=== PATIENT | female | born 1985 | race Caucasian/White ===

== ENCOUNTER → 2018-01-29 08:50 | Outpatient (CLI) | payer BC, SELFPAY ==
--- NOTE | 2018-01-29 | DI.US.S_ITS ---
PROCEDURE: US PELVIC COMPLETE INDICATIONS: CHRONIC RIGHT PELVIC PAIN TECHNIQUE: Real-time scanning was performed of the pelvic organs, with image documentation. Additional endovaginal scanning was necessary due to incomplete visualization of the adnexal and endometrial structures by transabdominal scanning. COMPARISON: None. FINDINGS: Transabdominal scanning: Limited scanning through the kidneys shows no hydronephrosis. No pathologic free abdominal or pelvic fluid. Endovaginal scanning: Uterus: Uterus is normal in size at 9.5 x 5.3 x 7.0 cm. The endometrium measures 14.7 mm in combined thickness. Ovaries: Complex, thick and irregular walled cyst involves the right ovary measuring 2.5 x 2.0 x 2.4 cm. Ovaries otherwise are normal. IMPRESSION: Complex right ovarian cyst. Recommend short term follow pelvic ultrasound in 6-14 weeks to assure resolution. Dictated by: Wilfredo OBANDO Interpreted: Fredis Lemus MD on 01/29/2018 at 10:21 Approved by: Fredis Lemus M.D. on 01/29/2018 at 11:00
== END ==
PROVIDERS: PCP Physician Assistant; Visit Provider Nurse Practitioner Family
DX: N83.201 Unspecified ovarian cyst, right side (principal)
CPT/HCPCS: 76830; 76856

== ENCOUNTER → 2019-04-03 10:37 | Outpatient (CLI) | payer BC, SELFPAY ==
--- NOTE | 2019-04-03 10:39 | DI.RAD.S_ITS ---
PROCEDURE: XR CHEST 2V INDICATIONS: shortness of breath TECHNIQUE: 2 views of the chest were acquired. COMPARISON: None. FINDINGS: Surgical changes and devices: None. Lungs and pleura: Lungs are clear. No pleural effusions or pneumothorax. Mediastinum: Mediastinal contours are normal. Heart size is normal. Bones and chest wall: No suspicious bony abnormalities. Soft tissues appear unremarkable. IMPRESSION: Normal for age, source of current shortness of breath symptoms is not seen. Dictated by: Nj De La Garza M.D. on 04/03/2019 at 11:09 Approved by: Nj De La Garza M.D. on 04/03/2019 at 11:10
== END ==
PROVIDERS: PCP Family Medicine; Visit Provider Family Medicine
DX: R06.02 Shortness of breath (principal)
CPT/HCPCS: 71046; 93005

== ENCOUNTER → 2020-02-05 09:11 | Outpatient (CLI) | payer BC, SELFPAY ==
[2020-02-05 10:09] LABS: Add Manual Diff / Slide Review NO; Basophils Absolute Auto 100 /uL (0-100); Basophils Percent Auto 1.1 % (0-2); Eosinophils Absolute Auto 300 /uL (0-450); Eosinophils Percent Auto 4.8 % (2-4); Hematocrit 40.4 % (36-46); Hemoglobin 13.9 g/dL (12.0-16.0); Lymphocytes Absolute Auto 1800 /uL (1100-4500); Lymphocytes Percent Auto 30.2 % (25-40); Mean Corpuscular HGB Conc 34.3 % (30-36); Mean Corpuscular Hemoglobin 27.6 PG (26-34); Mean Corpuscular Volume 80.4 fL (80-100); Monocytes Absolute Auto 400 /uL (0-900); Monocytes Percent Auto 6.6 % (3-14); Neutrophils Absolute Auto 3500 /uL (1500-7000); Neutrophils Percent Auto 57.3 % (50-75); Platelet Count 302 X10^3/uL (150-400); Red Blood Cell Count 5.03 X10^6/uL (4.0-5.2); Red Cell Distribution Width 13.4 % (11.6-14.8); White Blood Cell Count 6.1 X10^3/uL (4.5-11.0)
[2020-02-05 10:30] LABS: Alanine Aminotransferase 18 IU/L (<35); Albumin 4.2 g/dL (3.5-5.0); Albumin Globulin Ratio 1.5 (1.0-2.8); Alkaline Phosphatase 67 U/L (38-126); Aspartate Aminotransferase 20 IU/L (14-36); BUN Creatinine Ratio 15.9 (6-22); Bilirubin Total 0.5 mg/dL (0.2-1.3); Blood Urea Nitrogen 13 mg/dL (7-17); Calcium 9.4 mg/dL (8.4-10.2); Carbon Dioxide 27 mmol/L (22-32); Chloride 105 mmol/L (98-107); Cholesterol 197 mg/dL (140-199); Estimated Glomerular Filt Rate > 60.0 mL/min (>60); Globulin 2.8 g/dL (1.7-4.1); Glucose 98 mg/dL (70-100); HDL Cholesterol 49 mg/dL (40-60); HEMOLYSIS < 15 (0-50); LDL Cholesterol Calculated 98 mg/dL (<100); Potassium 4.6 mmol/L (3.4-5.1); Sodium 138 mmol/L (137-145); Triglycerides 249 mg/dL (35-150)
[2020-02-05 10:58] LABS: TSH w/ Reflex to FT4 1.69 uIU/mL (0.47-4.68)
== END ==
PROVIDERS: Referring Provider Registered Nurse Diabetes Educator; Visit Provider Registered Nurse Diabetes Educator
DX: E66.9 Obesity, unspecified (principal); I10 Essential (primary) hypertension
CPT/HCPCS: 36415; 80053; 80061; 84443; 85025

== ENCOUNTER 2020-04-19 10:51 | Emergency (ER) | payer BC, SELFPAY ==
[2020-04-19 10:57] VITALS: BP 162/72; PULSE 90; RESP 15; TEMP 36.7; O2SAT 100
[2020-04-19 11:08] VITALS: BP 139/63; PULSE 95; RESP 17; O2SAT 99
[2020-04-19 11:23] LABS: Add Manual Diff / Slide Review NO; Basophils Absolute Auto 100 /uL (0-100); Basophils Percent Auto 0.9 % (0-2); Eosinophils Absolute Auto 200 /uL (0-450); Eosinophils Percent Auto 2.8 % (2-4); Hematocrit 36.8 % (36-46); Hemoglobin 12.1 g/dL (12.0-16.0); Lymphocytes Absolute Auto 2100 /uL (1100-4500); Monocytes Absolute Auto 500 /uL (0-900); Monocytes Percent Auto 6.1 % (3-14); Neutrophils Absolute Auto 5500 /uL (1500-7000); Neutrophils Percent Auto 65.2 % (50-75); Platelet Count 293 X10^3/uL (150-400); Red Blood Cell Count 4.49 X10^6/uL (4.0-5.2); Red Cell Distribution Width 12.7 % (11.6-14.8); White Blood Cell Count 8.4 X10^3/uL (4.5-11.0)
[2020-04-19] MEDS: KETOROLAC 60 MG/2 ML VIAL 15 MG IV (11:29)
[2020-04-19] MEDS: ONDANSETRON 4 MG/2 ML INJ IV (11:29)
[2020-04-19] MEDS: SODIUM CHLORIDE 0.9% 1,000 ML 1000 ML IV (11:29)
[2020-04-19 11:34] LABS: Alanine Aminotransferase 18 IU/L (<35); Albumin Globulin Ratio 1.3 (1.0-2.8); BUN Creatinine Ratio 13.4 (6-22); Bilirubin Total 0.5 mg/dL (0.2-1.3); Blood Urea Nitrogen 9 mg/dL (7-17); Calcium 8.6 mg/dL (8.4-10.2); Carbon Dioxide 26 mmol/L (22-32); Chloride 104 mmol/L (98-107); Estimated Glomerular Filt Rate > 60.0 mL/min (>60); Globulin 3.1 g/dL (1.7-4.1); Glucose 97 mg/dL (70-100); Lipase 127 U/L (23-300); Sodium 136 mmol/L (137-145); Total Protein 7.1 g/dL (6.3-8.2)
[2020-04-19 11:35] LABS: HEMOLYSIS 63 (0-50); Potassium 4.7 mmol/L (3.4-5.1)
[2020-04-19 11:36] LABS: Alkaline Phosphatase 50 U/L (38-126); Aspartate Aminotransferase 32 IU/L (14-36)
--- NOTE | 2020-04-19 11:53 | ED.ABDPAIN ---
HPI - Abdominal Pain <JOSE BullockP - Last Filed: 04/19/20 13:46> General Chief Complaint: Abdominal Pain Stated Complaint: Right side pain from ribs to hip and around back Time Seen by Provider: 04/19/20 11:05 Source: patient Mode of arrival: Ambulatory Limitations: no limitations History of Present Illness HPI narrative: This is a 34 year female, nonsmoker, who has history of endometriosis and partial hysterectomy, cholecystectomy presents to ED with chief complain of right lower quadrant pain since yesterday morning but became worse since this morning. Pain is in right abdominal pain under the rib cage radiating down to right lower quadrant and back. Patient reports chills but no fever, nausea without vomiting. Reports pain increases with getting up and down and walking. She had taken bath last night which helped with discomfort mildly. Patient reports painful to urinate but denies frequency, burning, or urgency. Patient has history of adenomyosis which eventually had partial hysterectomy done and reports lots of damaged to right ovary. Last meal was 8:00 p.m.. Related Data Previous Rx's Medication Instructions Recorded lisinopril 20 mg tablet 20 mg PO DAILY #90 tab 02/01/20 hydrocodone-acetaminophen [[place]] 1 tab PO BID PRN #7 tab 04/19/20 Allergies Allergy/AdvReac Type Severity Reaction Status Date / Time No Known Drug Allergies Allergy Verified 02/18/20 15:56 Review of Systems <Chris Ruiz [facility] - Last Filed: 04/19/20 13:46> Review of Systems Narrative: General: Denies fever, (+) chills, fatigue, malaise, sweats. HEENT: Denies sinus pain, ear pain, sore throat, difficulty swallowing, dizziness. Respiratory: Denies dyspnea, cough, wheezing, hemoptysis, sputum. Cardiovascular: Denies chest pain, palpitations, orthopnea, edema. Gastrointestinal: See HPI : See HPI Musculoskeletal: Denies weakness, joint pain or bony pain. Skin: Denies rash, skin lesions, or other. Neurologic: Denies weakness, headache, numbness, change in speech, confusion, seizures, incoordination. Psychiatric: No concerning psychosocial issues. 12-point review of systems is negative except for those stated above. Patient History <JOSE BullockP - Last Filed: 04/19/20 13:46> Medical History (Updated 04/19/20 @ 13:21 by JERRY Bullock) Chicken pox (Resolved) Depression (Chronic 2002) Endometriosis (Suspected 2004) Hearing difficulty (Acute) History of heavy periods (Chronic 2004) Obesity (Acute) Ovarian cyst (Chronic 2004) Surgical History (Updated 04/19/20 @ 12:55 by JERRY Bullock) Anesthesia (Resolved) H/O: hysterectomy (Acute) History of third molar tooth extraction (Resolved 2004) History of tonsillectomy (Resolved 2004) Status post cholecystectomy (Resolved 2008) Family History Father Age: 66 Cancer Hypertension Mental health disorder Mother Age: 64 Hypertension Fibromyalgia Grandfather Prostate cancer Grandmother No problems noted. Grandfather Dementia Grandmother No problems noted. Social History Smoking Status: Never smoker Smoking Status: Never smoker alcohol intake frequency: 0-2 drinks per day Substance Use Type: does not use Exam <JERRY Bullock - Last Filed: 04/19/20 13:46> Narrative Exam Narrative: GEN: Alert, oriented x 3, well appearing and nourished, and in moderate distress from pain. Head: Normal cephalic, atraumatic. No scalp or temporal tenderness, palpable mass or rash. EYES: Pupils are equal, round, and reactive to light and accommodation. Extraocular muscles are intact bilaterally. There is no subconjunctival hemorrhage, exudate and sclera non-icteric. ENT: Hearing grossly intact. Nose without bleeding, purulent discharge or deviation. Facial sinuses nontender to palpate. Mucous membrane moist, no mucosal lesion. Throat without erythema, tonsillar hypertrophy or exudate. Uvula in midline, airway patent. Neck: Trachea in midline. No JVD, non-tender without lymphadenopathy. No masses or thyroid megaly. Supple, non-tender and no meningeal signs. CARDIAC: Normal regular rate and rhythm without murmurs, gallops, or rubs. No chest wall tenderness. No peripheral edema, cyanosis or pallor. Capillary refill is less than 2 seconds. RESPIRATORY: Lungs are clear to auscultate bilaterally. No cough, wheezes, rales, or rhonchi. No stridor, respiratory distress, increase work of breathing, or accessary muscle used. ABD: Abdomen soft, nondistended. Rebound tenderness to palpate in right lower and right upper quadrant. Positive Rovsing sign. Bowel sounds are normal in all 4 quadrants. There is no palpable masses or organomegaly. EXT: Full painless ROM of all extremities with no loss of sensation, strength, effusion or edema. SKIN: Warm, dry, normal color for patient. No erythema, lesions or rash over visible areas. BACK: Nontender without deformity or crepitance. No flank tenderness. NEUROLOGICAL: Alert and oriented to place, time and person. Sensation and motor function intact bilaterally. No facial droops, dysphasia. PSYCHIATRIC: Good judgement and reason, without hallucinations, abnormal affect or abnormal behaviors during the examination. Patient is not suicidal. Initial Vital Signs Initial Vital Signs: Vital Signs Temperature 98.1 F 04/19/20 10:57 Pulse Rate 90 04/19/20 10:57 Respiratory Rate 15 04/19/20 10:57 Blood Pressure 162/72 H 04/19/20 10:57 Pulse Oximetry 100 04/19/20 10:57 External Female Exam: normal external appearance Speculum Exam - Vagina: normal appearance of the vagina and normal vaginal discharge Speculum Exam - Cervix: nontender Bimanual Exam- Vagina & Uterus: uterine size normal, consistency normal and No tender Bimanual Exam- Adnexa, other: adnexal mass and tender on the right <Riana Bueno MD - Last Filed: 04/20/20 18:25> Initial Vital Signs Initial Vital Signs: Vital Signs Temperature 98.1 F 04/19/20 10:57 Pulse Rate 90 04/19/20 10:57 Respiratory Rate 04/19/20 10:57 Blood Pressure 162/72 H 04/19/20 10:57 Pulse Oximetry 100 04/19/20 10:57 Scores <JERRY Bullock - Last Filed: 04/19/20 13:46> GCS [place] coma scale eye opening: Spontaneous [place] coma scale verbal response: Orientated [place] coma scale motor response: Obey commands [place] coma scale total score: 15 Course <Chris JERRY Ruiz - Last Filed: 04/19/20 13:46> Orders Ordered: Discontinued Medications Sodium Chloride (Normal Saline 0.9%) 1,000 mls @ 1,000 mls/hr IV BOLUS ONE Stop: 04/19/20 12:18 Last Infusion: 04/19/20 12:36 Dose: 0 mls/hr Documented by: Admin: 04/19/20 11:29 Dose: 1,000 mls/hr Documented by: SADE Ketorolac Tromethamine (Toradol) 15 mg IV NOW ONE Stop: 04/19/20 11:20 Last Admin: 04/19/20 11:29 Dose: 15 mg Documented by: SADE Ondansetron HCl (Zofran) 4 mg IV NOW ONE Stop: 04/19/20 11:20 Last Admin: 04/19/20 11:29 Dose: 4 mg Documented by: SADE Vital Signs Vital signs: Vital Signs - 8 hr 04/19/20 10:57 04/19/20 11:08 04/19/20 12:40 Temperature 98.1 F Pulse Rate 90 95 H Respiratory Rate 15 17 Blood Pressure 162/72 H 139/63 127/75 Pulse Oximetry 100 99 04/19/20 13:00 Temperature Pulse Rate 80 Respiratory Rate Blood Pressure 136/77 Pulse Oximetry 100 <Riana Bueno MD - Last Filed: 04/20/20 18:25> Orders Ordered: Discontinued Medications Sodium Chloride (Normal Saline 0.9%) 1,000 mls @ 1,000 mls/hr IV BOLUS ONE Stop: 04/19/20 12:18 Last Infusion: 04/19/20 12:36 Dose: 0 mls/hr Documented by: Admin: 04/19/20 11:29 Dose: 1,000 mls/hr Documented by: SADE Ketorolac Tromethamine (Toradol) 15 mg IV NOW ONE Stop: 04/19/20 11:20 Last Admin: 04/19/20 11:29 Dose: 15 mg Documented by: SADE Ondansetron HCl (Zofran) 4 mg IV NOW ONE Stop: 04/19/20 11:20 Last Admin: 04/19/20 11:29 Dose: 4 mg Documented by: SADE Vital Signs Vital signs: Vital Signs - 8 hr 04/19/20 10:57 04/19/20 11:08 04/19/20 12:40 Temperature 98.1 F Pulse Rate 90 95 H Respiratory Rate 15 17 Blood Pressure 162/72 H 139/63 127/75 Pulse Oximetry 100 99 04/19/20 13:00 Temperature Pulse Rate 80 Respiratory Rate Blood Pressure 136/77 Pulse Oximetry 100 MDM - Abdominal Pain <Chris JERRY Ruiz - Last Filed: 04/19/20 13:46> Differential Diagnosis Differential diagnosis: Likely acute appendicitis, calculus of kidney, diverticulitis and other (Ovarian cyst) Medical Records Attestation: I reviewed the patient's medical records. Lab Data Attestation: I reviewed the patient's lab results. Result diagrams: 04/19/20 11:15 04/19/20 11:15 Labs: Lab Results 04/19/20 04/19/20 04/19/20 Range/Units 11:15 11:15 11:58 WBC 8.4 (4.5-11.0) X10^3/uL RBC 4.49 (4.0-5.2) X10^6/uL Hgb 12.1 (12.0-16.0) g/dL Hct 36.8 (36-46) % MCV 82.0 (80-100) fL MCH 27.0 (26-34) PG MCHC 33.0 (30-36) % RDW 12.7 (11.6-14.8) % Plt Count 293 (150-400) X10^3/uL Neut % (Auto) 65.2 (50-75) % Lymph % (Auto) 25.0 (25-40) % Ada % (Auto) 6.1 (3-14) % Eos % (Auto) 2.8 (2-4) % Baso % (Auto) 0.9 (0-2) % Neut # (Auto) 5500 (0714-9050) /uL Lymph # (Auto) 2100 (9634-7337) /uL Ada # (Auto) 500 (0-900) /uL Eos # (Auto) 200 (0-450) /uL Baso # (Auto) 100 (0-100) /uL PT 11.2 (10.1-12.7) SECONDS INR 1.0 (0.9-1.3) APTT 29 (26.4-36.2) SECONDS Sodium 136 L (137-145) mmol/L Potassium 4.7 (3.4-5.1) mmol/L Chloride 104 (98-107) mmol/L Carbon Dioxide 26 (22-32) mmol/L BUN 9 (7-17) mg/dL Creatinine 0.67 (0.52-1.04) mg/dL Estimated GFR > 60.0 (>60) mL/min BUN/Creatinine Ratio 13.4 (6-22) Glucose 97 (70-100) mg/dL Calcium 8.6 (8.4-10.2) mg/dL Total Bilirubin 0.5 (0.2-1.3) mg/dL AST 32 (14-36) IU/L ALT 18 (<35) IU/L Alkaline Phosphatase 50 (38-126) U/L Total Protein 7.1 (6.3-8.2) g/dL Albumin 4.0 (3.5-5.0) g/dL Globulin 3.1 (1.7-4.1) g/dL Albumin/Globulin Ratio 1.3 (1.0-2.8) Lipase 127 (23-300) U/L Point of care testing: Urine Dip Bedside Urine Glucose 100 mg/dl Bedside Urine Bilirubin - Negative Bedside Urine Ketone - Negative Urine Specific [place] 1.010 Bedside Urine Occult Blood - Negative Bedside Urine pH 6.0 Bedside Urine Protein - Negative Bedside Urine Urobilinogen - Negative Bedside Urine Nitrite - Negative Bedside Urine Leukocytes - Negative Esterase Imaging Data CT scan - abdomen/pelvis: Radiologist's Impression: [place] [address] CT Scan Report Signed Patient: Viktoriya Adams [facility]#: [id number] : 1985Acct:[id number] Age/Sex: 34 / FDate of Service: 04/19/20 Loc: ED Accession Number: [id number] Procedure: CT abdomen pelvis w con Ordering Provider: Chris Ruiz PROCEDURE: CT ABDOMEN PELVIS W CON INDICATIONS: RLQ, back pain TECHNIQUE: After the administration of intravenous contrast, 5 mm thick sections acquired from the diaphragm to the symphysis. 5 mm coronal and sagittal reformats were acquired. For radiation dose reduction, the following was used: automated exposure control, adjustment of mA and/or kV according to patient size. COMPARISON: None. FINDINGS: Image quality: Excellent. ABDOMEN: Lung bases: Lung bases are clear. Heart size is normal. Solid organs: Liver is normal in size and enhancement. Gallbladder is surgically absent . Biliary system is non dilated. Pancreas enhances normally. Spleen is normal in size and enhancement. No adrenal nodules. Kidneys demonstrate normal size and enhancement, without hydronephrosis. Peritoneum and bowel: Bowel loops demonstrate normal wall thickness and caliber. No free fluid or air. Nodes and vessels: No retroperitoneal or mesenteric adenopathy by size criteria. Aorta and inferior vena cava are normal in size. Miscellaneous: No ventral hernias. PELVIS: Genitourinary: Bladder wall thickness is normal. The uterus is surgically absent. There is a peripherally hypervascular involuting ovoid structure measuring approximately 2.3 cm in the high right adnexa suggestive of an involuting or ruptured hemorrhagic cyst. Small amount of free fluid is present in the pelvis. The left ovary has a mildly enlarged lobulated appearance measuring 5.5 cm in diameter. Miscellaneous: No inguinal hernias or adenopathy. Bones: No suspicious bony lesions. Bilateral L5 pars defects. No vertebral body compression fractures. IMPRESSION: 1. Normal appendix. 2. Involuting/ruptured right ovarian corpus luteum. 3. Mildly enlarged lobulated left ovary. 4. Hysterectomy. 5. Bilateral L5 pars defects without spondylolisthesis. Dictated by: Patricia Antoine M.D. on 04/19/2020 at 12:35 Approved by: Patricia Antoine M.D. on 04/19/2020 at 12:42 [facility] Narrative Medical decision making narrative: This is a 34 year female who presents to ED with right lower quadrant pain which started yesterday and became worse this morning. Patient has history of partial hysterectomy and right ovarian cyst. Urine test without indication for infection or hematuria. Unremarkable CBC and chemistry test. Physical exam with exquisite tenderness to right lower quadrant. Pelvic exam appreciated tender to palpate in right ovary/lower quadrant without unusual vaginal discharge or cervical motion tenderness. Considered appendicitis, ovarian cyst, kidney stone and obtained CT of abdomen pelvis which showed normal appendix, involuting/ruptured right ovarian cyst measuring approximately 2.3 cm and also left ovary mildly enlarged lobulated appearance measuring 5.5 cm in diameter. Patient's pain was managed with IV Toradol and Zofran for nausea and infused 1 L of normal saline which helped with her symptoms. 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 Discharged to home with a few tabs of [place] for severe pain. <Riana Bueno MD - Last Filed: 04/20/20 18:25> Lab Data Labs: Lab Results 04/19/20 04/19/20 04/19/20 Range/Units 11:15 11:15 11:58 WBC 8.4 (4.5-11.0) X10^3/uL RBC 4.49 (4.0-5.2) X10^6/uL Hgb 12.1 (12.0-16.0) g/dL Hct 36.8 (36-46) % MCV 82.0 (80-100) fL MCH 27.0 (26-34) PG MCHC 33.0 (30-36) % RDW 12.7 (11.6-14.8) % Plt Count 293 (150-400) X10^3/uL Neut % (Auto) 65.2 (50-75) % Lymph % (Auto) 25.0 (25-40) % Ada % (Auto) 6.1 (3-14) % Eos % (Auto) 2.8 (2-4) % Baso % (Auto) 0.9 (0-2) % Neut # (Auto) 5500 (0565-0677) /uL Lymph # (Auto) 2100 (7507-1042) /uL Ada # (Auto) 500 (0-900) /uL Eos # (Auto) 200 (0-450) /uL Baso # (Auto) 100 (0-100) /uL PT 11.2 (10.1-12.7) SECONDS INR 1.0 (0.9-1.3) APTT 29 (26.4-36.2) SECONDS Sodium 136 L (137-145) mmol/L Potassium 4.7 (3.4-5.1) mmol/L Chloride 104 (98-107) mmol/L Carbon Dioxide 26 (22-32) mmol/L BUN 9 (7-17) mg/dL Creatinine 0.67 (0.52-1.04) mg/dL Estimated GFR > 60.0 (>60) mL/min BUN/Creatinine Ratio 13.4 (6-22) Glucose 97 (70-100) mg/dL Calcium 8.6 (8.4-10.2) mg/dL Total Bilirubin 0.5 (0.2-1.3) mg/dL AST 32 (14-36) IU/L ALT 18 (<35) IU/L Alkaline Phosphatase 50 (38-126) U/L Total Protein 7.1 (6.3-8.2) g/dL Albumin 4.0 (3.5-5.0) g/dL Globulin 3.1 (1.7-4.1) g/dL Albumin/Globulin Ratio 1.3 (1.0-2.8) Lipase 127 (23-300) U/L Point of care testing: Urine Dip Bedside Urine Glucose 100 mg/dl Bedside Urine Bilirubin - Negative Bedside Urine Ketone - Negative Urine Specific [place] 1.010 Bedside Urine Occult Blood - Negative Bedside Urine pH 6.0 Bedside Urine Protein - Negative Bedside Urine Urobilinogen - Negative Bedside Urine Nitrite - Negative Bedside Urine Leukocytes - Negative Esterase Discharge Plan Departure Patient Disposition: Home Clinical Impression: Abdominal pain Qualifiers: Abdominal location: right lower quadrant Qualified Code(s): R10.31 - Right lower quadrant pain Ovarian cyst Qualifiers: Laterality: bilateral Qualified Code(s): N83.201 - Unspecified ovarian cyst, right side Discharge Date/Time: 04/19/20 13:35 Instructions: DI for Ovarian Cyst, DI for Abdominal Pain-Adult Activity Restrictions/Additional Instructions: You have been diagnosed with [right lower quadrant abdominal pain likely from ovarian cyst. Today's blood tests are assuring with stable blood count and no elevation in indication for infection. You were treated with IV fluid and Toradol, Zofran for your symptoms. ]. What to do: *Take your medications as directed. You can take [id number] Tylenol and or Motrin as needed for discomfort. Ibuprofen 400-600 mg up to 3 to 4 times a day as needed for discomfort with food to decrease GI irritation. Tylenol 650-1000 mg up to 3 to 4 times a day as needed for pain. [place] for severe pain which is narcotic pain medication. Please take precautions for drowsiness such as not driving, drinking alcohol, or operating heavy equipments. Also it can cause constipation so please take precautions. [place] has been transmitted to [facility] [place]. *Follow up with your primary care provider and PUBLIC WORKS INSPECTOR provider in 2-3 days, call for an appointment. Let them know you were seen in the ED and that we asked you to be seen in follow up. *Return to ED if you have any new, worsening, or concerning symptoms, such as [chest pain, breathing difficulty, unable to tolerate fluids, dizziness, near syncope, vaginal bleeding, fever or any acute concerns]. Prescriptions: New hydrocodone-acetaminophen [[place]] 5-325 mg tablet 1 tab PO BID PRN (Reason: pain) Qty: 7 RF: 0 No Action lisinopril 20 mg tablet 20 mg PO DAILY Qty: 90 RF: 3 Referrals: ReynoldsCarolyn MD [Physician] - Trae Castellanos ARNP [Primary Care Provider] - Stand Alone Forms: Work Release Note <Riana Bueno MD - Last Filed: 04/20/20 18:25> Cosign ED Attending Cosniniature Attestation: I was immediately available in the department for consultation throughout this patient's visit. I agree with documentation as above. Riana Bueno MD
[2020-04-19 12:14] LABS: Prothrombin Time 11.2 SECONDS (10.1-12.7)
[2020-04-19 12:17] LABS: PTT Partial Thromboplastin Tim 29 SECONDS (26.4-36.2)
--- NOTE | 2020-04-19 12:37 | DI.CT.S_ITS ---
PROCEDURE: CT ABDOMEN PELVIS W CON INDICATIONS: RLQ, back pain TECHNIQUE: After the administration of intravenous contrast, 5 mm thick sections acquired from the diaphragm to the symphysis. 5 mm coronal and sagittal reformats were acquired. For radiation dose reduction, the following was used: automated exposure control, adjustment of mA and/or kV according to patient size. COMPARISON: None. FINDINGS: Image quality: Excellent. ABDOMEN: Lung bases: Lung bases are clear. Heart size is normal. Solid organs: Liver is normal in size and enhancement. Gallbladder is surgically absent . Biliary system is non dilated. Pancreas enhances normally. Spleen is normal in size and enhancement. No adrenal nodules. Kidneys demonstrate normal size and enhancement, without hydronephrosis. Peritoneum and bowel: Bowel loops demonstrate normal wall thickness and caliber. No free fluid or air. Nodes and vessels: No retroperitoneal or mesenteric adenopathy by size criteria. Aorta and inferior vena cava are normal in size. Miscellaneous: No ventral hernias. PELVIS: Genitourinary: Bladder wall thickness is normal. The uterus is surgically absent. There is a peripherally hypervascular involuting ovoid structure measuring approximately 2.3 cm in the high right adnexa suggestive of an involuting or ruptured hemorrhagic cyst. Small amount of free fluid is present in the pelvis. The left ovary has a mildly enlarged lobulated appearance measuring 5.5 cm in diameter. Miscellaneous: No inguinal hernias or adenopathy. Bones: No suspicious bony lesions. Bilateral L5 pars defects. No vertebral body compression fractures. IMPRESSION: 1. Normal appendix. 2. Involuting/ruptured right ovarian corpus luteum. 3. Mildly enlarged lobulated left ovary. 4. Hysterectomy. 5. Bilateral L5 pars defects without spondylolisthesis. Dictated by: Patricia Antoine M.D. on 04/19/2020 at 12:35 Approved by: Patricia Antoine M.D. on 04/19/2020 at 12:42
[2020-04-19 12:40] VITALS: BP 127/75
[2020-04-19 13:00] VITALS: BP 136/77; PULSE 80; O2SAT 100
== END 2020-04-19 13:35 | disposition home or self-care (01) ==
PROVIDERS: Emergency Provider Nurse Practitioner Family; PCP Registered Nurse Diabetes Educator
DX: R10.31 Right lower quadrant pain (principal); N83.201 Unspecified ovarian cyst, right side
CPT/HCPCS: 36415; 74177; 80053; 81003; 83690; 85025; 85610; 85730; 96361; 96374; 96375; 99284; J1885; J2405; Q9967

== ENCOUNTER → 2021-05-07 13:17 | Outpatient (CLI) | payer BC, SELFPAY ==
[2021-05-07 14:04] LABS: COVID19 -Nasal RAPID Negative (Negative)
== END ==
PROVIDERS: PCP Registered Nurse Diabetes Educator; Visit Provider Nurse Practitioner Family
DX: J02.9 Acute pharyngitis, unspecified (principal); Z20.822 Contact with and (suspected) exposure to COVID-19
CPT/HCPCS: 87070; 87635

== ENCOUNTER → 2021-05-30 09:33 | Outpatient (CLI) | payer BC, SELFPAY ==
[2021-05-30 12:13] LABS: Hematocrit 38.6 % (36-46); Hemoglobin 12.8 g/dL (12.0-16.0); Mean Corpuscular HGB Conc 33.2 % (30-36); Mean Corpuscular Hemoglobin 26.8 PG (26-34); Mean Corpuscular Volume 80.8 fL (80-100); Platelet Count 311 X10^3/uL (150-400); Red Blood Cell Count 4.77 X10^6/uL (4.0-5.2); Red Cell Distribution Width 12.9 % (11.6-14.8); White Blood Cell Count 7.6 X10^3/uL (4.5-11.0)
[2021-05-30 13:06] LABS: Alanine Aminotransferase 32 IU/L (<35); Albumin 4.3 g/dL (3.5-5.0); Albumin Globulin Ratio 1.6 (1.0-2.8); Alkaline Phosphatase 58 U/L (38-126); Aspartate Aminotransferase 25 IU/L (14-36); BUN Creatinine Ratio 16.5 (6-22); Bilirubin Total 0.4 mg/dL (0.2-1.3); Blood Urea Nitrogen 13 mg/dL (7-17); Calcium 9.3 mg/dL (8.4-10.2); Carbon Dioxide 27 mmol/L (22-32); Chloride 100 mmol/L (98-107); Cholesterol 198 mg/dL (140-199); Estimated Glomerular Filt Rate > 60.0 mL/min (>60); Globulin 2.7 g/dL (1.7-4.1); Glucose 86 mg/dL (70-100); HDL Cholesterol 57 mg/dL (40-60); HEMOLYSIS < 15 (0-50); LDL Cholesterol Calculated 93 mg/dL (<100); Potassium 4.5 mmol/L (3.4-5.1); Sodium 137 mmol/L (137-145); Triglycerides 238 mg/dL (35-150)
[2021-05-30 13:19] LABS: TSH w/ Reflex to FT4 1.38 uIU/mL (0.47-4.68)
== END ==
PROVIDERS: PCP Registered Nurse Diabetes Educator; Referring Provider Registered Nurse Diabetes Educator; Visit Provider Registered Nurse Diabetes Educator
DX: I10 Essential (primary) hypertension (principal)
CPT/HCPCS: 36415; 80053; 80061; 84443; 85027

== ENCOUNTER → 2022-05-18 15:24 | Outpatient (CLI) | payer BC, SELFPAY ==
[2022-05-18 16:02] LABS: Hematocrit 38.6 % (36-46); Mean Corpuscular HGB Conc 33.6 % (30-36); Mean Corpuscular Hemoglobin 26.9 PG (26-34); Platelet Count 302 X10^3/uL (150-400); Red Blood Cell Count 4.82 X10^6/uL (4.0-5.2); Red Cell Distribution Width 13.4 % (11.6-14.8); White Blood Cell Count 10.3 X10^3/uL (4.5-11.0)
[2022-05-18 16:32] LABS: Alanine Aminotransferase 16 IU/L (<35); Albumin 4.2 g/dL (3.5-5.0); Albumin Globulin Ratio 1.4 (1.0-2.8); Alkaline Phosphatase 71 U/L (38-126); Aspartate Aminotransferase 18 IU/L (14-36); BUN Creatinine Ratio 11.3 (6-22); Bilirubin Total 0.4 mg/dL (0.2-1.3); Blood Urea Nitrogen 9 mg/dL (7-17); Calcium 8.7 mg/dL (8.4-10.2); Carbon Dioxide 27 mmol/L (22-32); Chloride 101 mmol/L (98-107); Cholesterol 199 mg/dL (140-199); Estimated Glomerular Filt Rate > 60 mL/min (>60); Globulin 3.1 g/dL (1.7-4.1); Glucose 97 mg/dL (70-100); HDL Cholesterol 56 mg/dL (40-60); HEMOLYSIS < 15 (0-50); LDL Cholesterol Calculated 87 mg/dL (<100); Potassium 3.7 mmol/L (3.4-5.1); Sodium 137 mmol/L (137-145); Total Protein 7.3 g/dL (6.3-8.2); Triglycerides 281 mg/dL (35-150)
[2022-05-18 17:02] LABS: TSH w/ Reflex to FT4 1.33 uIU/mL (0.47-4.68)
== END ==
PROVIDERS: PCP Registered Nurse Diabetes Educator; Referring Provider Registered Nurse Diabetes Educator; Visit Provider Registered Nurse Diabetes Educator
DX: E78.5 Hyperlipidemia, unspecified (principal); I10 Essential (primary) hypertension
CPT/HCPCS: 36415; 80053; 80061; 84443; 85027

== ENCOUNTER → 2022-09-24 13:19 | Outpatient (CLI) | payer OTHER, SELFPAY | PROVIDERS: PCP Registered Nurse Diabetes Educator; Visit Provider Student in an Organized Health Care Education/Training Program | DX: R30.0 Dysuria (principal) | CPT/HCPCS: 87086 ==

== ENCOUNTER → 2022-09-24 13:29 | Outpatient (CLI) | payer OTHER, SELFPAY ==
[2022-09-24 13:56] LABS: Add Manual Diff / Slide Review NO; Basophils Absolute Auto 100 /uL (0-100); Eosinophils Absolute Auto 400 /uL (0-450); Eosinophils Percent Auto 4.6 % (2-4); Hematocrit 43.8 % (36-46); Hemoglobin 14.3 g/dL (12.0-16.0); Lymphocytes Absolute Auto 2200 /uL (1100-4500); Lymphocytes Percent Auto 26.8 % (25-40); Mean Corpuscular HGB Conc 32.7 % (30-36); Mean Corpuscular Hemoglobin 26.3 PG (26-34); Mean Corpuscular Volume 80.5 fL (80-100); Monocytes Absolute Auto 500 /uL (0-900); Monocytes Percent Auto 6.3 % (3-14); Neutrophils Absolute Auto 5100 /uL (1500-7000); Neutrophils Percent Auto 61.3 % (50-75); Platelet Count 312 X10^3/uL (150-400); Red Blood Cell Count 5.45 X10^6/uL (4.0-5.2); Red Cell Distribution Width 13.4 % (11.6-14.8); White Blood Cell Count 8.3 X10^3/uL (4.5-11.0)
[2022-09-24 14:16] LABS: Alanine Aminotransferase 24 IU/L (<35); Albumin 4.4 g/dL (3.5-5.0); Albumin Globulin Ratio 1.3 (1.0-2.8); Alkaline Phosphatase 71 U/L (38-126); Aspartate Aminotransferase 23 IU/L (14-36); BUN Creatinine Ratio 13.4 (6-22); Bilirubin Total 0.5 mg/dL (0.2-1.3); Blood Urea Nitrogen 9 mg/dL (7-17); Calcium 8.8 mg/dL (8.4-10.2); Carbon Dioxide 21 mmol/L (22-32); Chloride 105 mmol/L (98-107); Estimated Glomerular Filt Rate > 60 mL/min (>60); Globulin 3.3 g/dL (1.7-4.1); Glucose 96 mg/dL (70-100); HEMOLYSIS < 15 (0-50); Potassium 3.9 mmol/L (3.4-5.1); Sodium 136 mmol/L (137-145); Total Protein 7.7 g/dL (6.3-8.2)
== END ==
PROVIDERS: PCP Registered Nurse Diabetes Educator; Referring Provider Student in an Organized Health Care Education/Training Program; Visit Provider Student in an Organized Health Care Education/Training Program
DX: R10.2 Pelvic and perineal pain (principal); R10.31 Right lower quadrant pain; R30.0 Dysuria
CPT/HCPCS: 36415; 80053; 85025; 87086

== ENCOUNTER → 2023-02-07 18:31 | Outpatient (CLI) | payer OTHER, SELFPAY ==
[2023-02-07 20:44] LABS: Urine N gonorrhoeae NOT DETECTED
[2023-02-07 20:47] LABS: Urine Chlamydia NOT DETECTED
== END ==
PROVIDERS: PCP Registered Nurse Diabetes Educator; Visit Provider Nurse Practitioner Family
DX: N89.8 Other specified noninflammatory disorders of vagina (principal); N39.0 Urinary tract infection, site not specified
CPT/HCPCS: 87086; 87147; 87210; 87491; 87591

== ENCOUNTER → 2023-05-28 10:30 | Outpatient (CLI) | payer OTHER, SELFPAY ==
[2023-05-28 11:22] LABS: Hematocrit 40.9 % (36-46); Hemoglobin 13.7 g/dL (12.0-16.0); Mean Corpuscular HGB Conc 33.5 % (30-36); Mean Corpuscular Hemoglobin 27.1 PG (26-34); Mean Corpuscular Volume 80.9 fL (80-100); Platelet Count 356 X10^3/uL (150-400); Red Blood Cell Count 5.05 X10^6/uL (4.0-5.2); Red Cell Distribution Width 13.1 % (11.6-14.8); White Blood Cell Count 6.4 X10^3/uL (4.5-11.0)
[2023-05-28 11:40] LABS: Alanine Aminotransferase 29 IU/L (<35); Albumin 4.3 g/dL (3.5-5.0); Albumin Globulin Ratio 1.3 (1.0-2.8); Alkaline Phosphatase 63 U/L (38-126); Aspartate Aminotransferase 25 IU/L (14-36); BUN Creatinine Ratio 16.9 (6-22); Bilirubin Total 0.3 mg/dL (0.2-1.3); Blood Urea Nitrogen 13 mg/dL (7-17); Calcium 9.6 mg/dL (8.4-10.2); Carbon Dioxide 26 mmol/L (22-32); Chloride 103 mmol/L (98-107); Cholesterol 249 mg/dL (140-199); Estimated Glomerular Filt Rate > 60 mL/min (>60); Globulin 3.3 g/dL (1.7-4.1); Glucose 108 mg/dL (70-100); HDL Cholesterol 52 mg/dL (40-60); HEMOLYSIS < 15 (0-50); LDL Cholesterol Calculated 149 mg/dL (<100); Potassium 4.4 mmol/L (3.4-5.1); Sodium 138 mmol/L (137-145); Total Protein 7.6 g/dL (6.3-8.2); Triglycerides 238 mg/dL (35-150)
[2023-05-28 12:29] LABS: TSH w/ Reflex to FT4 1.08 uIU/mL (0.47-4.68)
[2023-05-30 15:25] LABS: Hepatitis B Surface Antigen NEGATIVE s/c (NEGATIVE)
[2023-05-30 15:43] LABS: HIV 1 & 2 Ab/Ag 4th Gen Combo NEGATIVE (NEGATIVE); Hep C Virus Ab w/Reflex Quant NEGATIVE s/c (NEGATIVE)
[2023-06-03 07:11] LABS: RPR Screen Non Reactive (Non Reactive)
== END ==
PROVIDERS: Nurse Practitioner Family; PCP Registered Nurse Diabetes Educator; Referring Provider Registered Nurse Diabetes Educator; Visit Provider Registered Nurse Diabetes Educator
DX: Z00.00 Encounter for general adult medical examination without abnormal findings (principal); N89.8 Other specified noninflammatory disorders of vagina; I10 Essential (primary) hypertension; E78.5 Hyperlipidemia, unspecified
CPT/HCPCS: 36415; 80053; 80061; 84443; 85027; 86592; 86695; 86696; 86803; 87340; 87389

== ENCOUNTER → 2023-11-29 09:40 | Outpatient (CLI) | payer OTHER, SELFPAY ==
[2023-11-29 10:47] LABS: Cholesterol 245 mg/dL (140-199); Glucose 110 mg/dL (70-100); HDL Cholesterol 56 mg/dL (40-60); LDL Cholesterol Calculated 139 mg/dL (<100); Triglycerides 250 mg/dL (35-150)
== END ==
PROVIDERS: PCP Registered Nurse Diabetes Educator; Referring Provider Registered Nurse Diabetes Educator; Visit Provider Registered Nurse Diabetes Educator
DX: E78.5 Hyperlipidemia, unspecified (principal); R73.01 Impaired fasting glucose
CPT/HCPCS: 36415; 80061; 82947

== ENCOUNTER → 2023-12-20 16:17 | Outpatient (CLI) | payer OTHER, SELFPAY ==
--- NOTE | 2023-12-20 16:19 | DI.US.S_ITS ---
PROCEDURE: US PELVIC COMPLETE INDICATIONS: Right sided pelvic pain TECHNIQUE: Real-time scanning was performed of the pelvic organs, with image documentation. Additional endovaginal scanning was necessary due to incomplete visualization of the adnexal and endometrial structures by transabdominal scanning. COMPARISON: [facility], US, US PELVIC COMPLETE, 11/29/2020, 9:05. FINDINGS: Uterus: Surgically absent. Ovaries: The ovaries are only visualized transabdominally. The right ovary measures 3.0 x 3.2 x 2.1 cm, with a calculated ovarian volume of 10.5 cc. The left ovary measures 2.5 x 2.0 x 0.9 cm, with a calculated ovarian volume of 2.4 cc. The ovaries have a normal sonographic appearance. Less than 12 follicles can be seen in each ovary. No adnexal masses are seen. Other: No pathologic free abdominal or pelvic fluid. IMPRESSION: 1. Limited pelvic ultrasound. The ovaries are only visualized transabdominally, and have a normal sonographic appearance. If further characterization of the ovaries is warranted, gynecologic protocol MRI could be used. We strive to produce accurate, complete, and clear reports of imaging services. To assist us in improving patient care, this report was composed using standard report templates and voice recognition software. Therefore, it may contain abnormal punctuation, insertions and/or omissions. Occasional wrong-word or sound-alike substitutions may occur. Though we review the report and make efforts to correct it, we do recommend that the report be read carefully in proper context to recognize any text inaccuracies. Dictated by: Gabrielle Gilbert M.D. on 12/21/2023 at 9:05 Approved by: Gabrielle Gilbert M.D. on 12/21/2023 at 9:07
== END ==
PROVIDERS: PCP Registered Nurse Diabetes Educator; Referring Provider Registered Nurse Diabetes Educator; Visit Provider Registered Nurse Diabetes Educator
DX: R10.2 Pelvic and perineal pain (principal); Z87.42 Personal history of other diseases of the female genital tract; Z90.710 Acquired absence of both cervix and uterus
CPT/HCPCS: 76830; 76856

== ENCOUNTER → 2024-03-16 18:23 | Outpatient (CLI) | payer OTHER, SELFPAY | PROVIDERS: PCP Registered Nurse Diabetes Educator; Visit Provider Physician Assistant Surgical | DX: R21 Rash and other nonspecific skin eruption (principal) | CPT/HCPCS: 87070 ==

== ENCOUNTER → 2024-05-27 11:53 | Outpatient (CLI) | payer OTHER, SELFPAY ==
[2024-05-27 13:05] LABS: Hematocrit 41.2 % (36-46); Hemoglobin 13.6 g/dL (12.0-16.0); Mean Corpuscular HGB Conc 32.9 % (30-36); Mean Corpuscular Volume 82.1 fL (80-100); Platelet Count 365 X10^3/uL (150-400); Red Blood Cell Count 5.02 X10^6/uL (4.0-5.2); Red Cell Distribution Width 13.2 % (11.6-14.8); White Blood Cell Count 7.3 X10^3/uL (4.5-11.0)
[2024-05-27 13:23] LABS: Alanine Aminotransferase 20 IU/L (<35); Albumin 4.5 g/dL (3.5-5.0); Albumin Globulin Ratio 1.7 (1.0-2.8); Alkaline Phosphatase 63 U/L (38-126); Aspartate Aminotransferase 18 IU/L (14-36); BUN Creatinine Ratio 13.9 (6-22); Bilirubin Total 0.5 mg/dL (0.2-1.3); Blood Urea Nitrogen 11 mg/dL (7-17); Calcium 9.7 mg/dL (8.4-10.2); Carbon Dioxide 26 mmol/L (22-32); Chloride 104 mmol/L (98-107); Cholesterol 204 mg/dL (140-199); Estimated Glomerular Filt Rate > 60 mL/min (>60); Globulin 2.7 g/dL (1.7-4.1); Glucose 102 mg/dL (70-100); HDL Cholesterol 53 mg/dL (40-60); HEMOLYSIS < 15 (0-50); LDL Cholesterol Calculated 99 mg/dL (<100); Potassium 4.4 mmol/L (3.4-5.1); Sodium 139 mmol/L (137-145); Total Protein 7.2 g/dL (6.3-8.2); Triglycerides 258 mg/dL (35-150)
[2024-05-27 13:53] LABS: TSH w/ Reflex to FT4 1.25 uIU/mL (0.47-4.68)
[2024-05-27 14:52] LABS: Hemoglobin A1C% w Est Avg Glu 5.5 % (4.0-6.0)
[2024-05-27 16:02] LABS: Hepatitis B Surface Antigen NEGATIVE s/c (NEGATIVE)
[2024-05-27 16:19] LABS: HIV 1 & 2 Ab/Ag 4th Gen Combo NEGATIVE (NEGATIVE); Hep C Virus Ab w/Reflex Quant NEGATIVE s/c (NEGATIVE)
[2024-05-27 16:58] LABS: Urine N gonorrhoeae NOT DETECTED
[2024-05-27 17:02] LABS: Urine Chlamydia NOT DETECTED
[2024-05-29 08:11] LABS: RPR Screen Non Reactive (Non Reactive)
[2024-05-31 04:51] LABS: Insulin Level Total 36.1 uIU/mL (2.6-24.9)
== END ==
PROVIDERS: PCP Registered Nurse Diabetes Educator; Referring Provider Registered Nurse Diabetes Educator; Visit Provider Registered Nurse Diabetes Educator
DX: E78.5 Hyperlipidemia, unspecified (principal); R73.01 Impaired fasting glucose; E16.1 Other hypoglycemia; Z91.89 Other specified personal risk factors, not elsewhere classified
CPT/HCPCS: 36415; 80053; 80061; 83036; 83525; 84443; 85027; 86592; 86695; 86696; 86803; 87340; 87389; 87491; 87591

== ENCOUNTER 2025-02-19 11:23 | Emergency (ER) | payer OTHER, SELFPAY ==
[2025-02-19 11:45] VITALS: BP 169/100; PULSE 104; RESP 16; TEMP 36.4; O2SAT 100; BMI 38.9
--- NOTE | 2025-02-19 12:15 | ED_ITS ---
<Statement entered by Charles Buchanan, - 02/19/25 13:05> Dr. Buchanan: I was immediately available in the department for consultation. I did not actually see the patient. HPI - Recheck/Abnormal Lab/Rx General Chief Complaint: Recheck/Abnormal Lab/Rx Stated Complaint: wants STI prevention Time Seen by Provider: 02/19/25 12:24 Mode of arrival: Ambulatory History of Present Illness HPI narrative: Ms. Adams is a pleasant 39-year-old female with a past medical history of hypertension, asthma, hysterectomy, anxiety/depression who presents to the emergency department for STI prevention. Patient had unprotected sexual intercourse with a male partner last night, it was consensual however patient was under the impression that a condom was to be worn. Male partner was not forthcoming about history of STIs. She would like preventative treatment today. She will follow up with her primary care doctor for additional STI testing. She has no medication allergies. She has not currently experiencing any symptoms. No dysuria, abnormal discharge, abdominal pain. Related Data Previous Rx's ?Medication ?Instructions ?Recorded duloxetine 30 mg capsule,delayed 30 mg PO DAILY #90 ca ps 06/01/24 release lisinopril 20 mg tablet 20 mg PO DAILY #90 tabs 05/06 03/28 norethindrone acetate 5 mg tablet 5 mg PO DAILY #90 ta bs 01/20/25 doxycycline hyclate 100 mg capsule 100 mg PO BID 7 day s #14 caps 02/19/25 Allergies Allergy/AdvReac Type Severity Reaction Status Date / Time No Known Drug Allergies Allergy Verified 02/19/25 11:45 Review of Systems Review of Systems ROS Unobtainable: All systems reviewed & are unremarkable except as noted in HPI and below Patient History Medical History Obstructive sleep apnea hypopnea, severe Hyperinsulinemia Impaired fasting glucose Anxiety Pelvic somatic dysfunction Sacral region somatic dysfunction Lumbar region somatic dysfunction Acute right-sided low back pain with right-sided sciatica Dyslipidemia Snoring Hearing difficulty Obesity Endometriosis (2004) History of heavy periods (2004) Ovarian cyst (2004) Chicken pox Depression (2002) Surgical History H/O: hysterectomy Anesthesia History of third molar tooth extraction (2004) History of tonsillectomy (2004) Status post cholecystectomy (2008) Family History Father Age: 71 Cancer Hypertension Mental health disorder Mother Age: 69 Hypertension Fibromyalgia Grandfather Prostate cancer Grandmother No problems noted. Grandfather Dementia Grandmother No problems noted. alcohol intake frequency: 0-2 drinks per day Exam Narrative Exam Narrative: GENERAL: 39 year old patient appears stated age. Well-developed patient, in no acute distress, tearful. HEAD: Atraumatic. Normocephalic. NECK: Trachea midline. Cervical ROM intact. CARDIOVASCULAR: Regular rate RESPIRATORY: ?Nonlabored respirations. ?Speaking in clear, full sentences.? NEURO: AOx3. ?Clear speech. ?Moves all 4 extremities appropriately. SKIN: No rash or erythema of visible areas Initial Vital Signs Initial Vital Signs: Vital Signs Temperature 97.6 F 02/19/25 11:45 Pulse Rate 104 H 02/19/25 11:45 Respiratory Rate 16 02/19/25 11:45 Blood Pressure 169/100 H 02/19/25 11:45 Pulse Oximetry 100 02/19/25 11:45 Oxygen Delivery Method Room Air 02/19/25 11:45 Course Orders Ordered: ED Orders 02/19/25 11:47 Chlamydia Gonorrhea PCR -URINE Stat Discontinued Medications Ceftriaxone Sodium (Ceftriaxone 1,000 Mg Vial) 500 mg IM NOW ONE Stop: 02/19/25 12:10 Last Admin: 02/19/25 12:23 Dose: 500 mg Doxycycline Hyclate (Doxycycline Hyclate 100 Mg Tablet) 100 mg PO NOW ONE Stop: 02/19/25 12:10 Last Admin: 02/19/25 12:23 Dose: 100 mg Lidocaine HCl (Lidocaine 1% (Pf) 5 Ml) 2.1 ml INJ NOW ONE Stop: 02/19/25 12:10 Last Admin: 02/19/25 12:23 Dose: 2.1 ml Vital Signs Vital signs: Vital Signs - 8 hr 02/19/25 11:45 Temperature 97.6 F Pulse Rate 104 H Respiratory Rate 16 Blood Pressure 169/100 H Pulse Oximetry 100 Oxygen Delivery Method Room Air MDM - Recheck/Abnormal Lab/Rx Medical Records Attestation: I reviewed the patient's medical records. [facility] Narrative Medical decision making narrative: 39-year-old female with a past medical history of hypertension, asthma, hysterectomy, anxiety/depression who presents to the emergency department for STI prevention. Differential diagnosis includes but is not limited to STI prevention, vaginitis, vulvovaginal candidiasis, etc. On exam the patient is in no acute distress, nontoxic appearing, she is tearful due to the circumstances. She is not having any pain or vaginal symptoms. We had an extensive discussion about STDs including gonorrhea, chlamydia, mycoplasma, trichomoniasis, HIV, hepatitis, syphilis, herpes, others. After shared decision-making, the patient would like to be prophylactically treated for gonorrhea and chlamydia, she will follow up with the primary care doctor for additional testing. I did offer vaginal swabs today in addition to empiric treatment for trichomoniasis however patient declined and will do these with PCP as it may take time for any STDs to show positive. Discussed ED return precautions, prompt follow up with the PCP, completion of full course of antibiotics and having any partners be treated as well. She verbalized understanding of all information agreeable with the plan. She is stable for discharge home after receiving 500 mg IM Rocephin and 1st dose of doxycycline in the ED. remainder of doxycycline sent to pharmacy of choice. Discharge Plan Departure Patient Disposition: Home Clinical Impression: Encounter for assessment of STD exposure Instructions: How to Detect and Treat STDs Activity Restrictions/Additional Instructions: Dear Ms. Adams, Thank you for coming to the emergency department. Today you were treated prophylactically for gonorrhea and chlamydia which are to common types of sexually transmitted infections. As we discussed, there are many other STDs such as trichomoniasis, herpes, HIV, hepatitis, syphilis, genital warts, etc. Please complete the full course of oral antibiotics to complete treatment for chlamydia. The injection he received today is the treatment for gonorrhea. Refrain from sexual intercourse for 2 weeks to help prevent spread of any infections. A urine test today was obtained to check for gonorrhea and Chlamydia, however a vaginal swab is the most effective test. It is important that any sexual partners are treated for any positive infections as well. Please follow up with your primary care doctor/OBGYN to have additional STD testing performed such as vaginal swabs and blood work if indicated. If you develop any symptoms, you may return to the ED for further treatment. Please follow up with your primary care doctor within the next 2-3 days for ER follow-up. (If you do not have a PCP you can call [phone]. ?to schedule an appointment with an [facility] Primary Care Provider) IF YOU DEVELOP ANY NEW OR WORSENING SYMPTOMS, RETURN TO THE ER! Please read the attached instructions, they highlight more specific treatments and interventions for you at home. Thank you for letting me participate in your care, Keira Ontiveros PA-C Prescriptions: New doxycycline hyclate 100 mg capsule 100 mg PO BID 7 Days Qty: 14 0RF No Action norethindrone acetate 5 mg tablet 5 mg PO DAILY Qty: 90 3RF lisinopril 20 mg tablet 20 mg PO DAILY Qty: 90 3RF duloxetine 30 mg capsule,delayed release(DR/EC) 30 mg PO DAILY Qty: 90 3RF Referrals: Trae Castellanos ARNP [Primary Care Provider, Medical] Stand Alone Forms: Patient Portal/API
[2025-02-19] MEDS: DOXYCYCLINE HYCLATE 100 MG TABLET PO (12:23)
[2025-02-19] MEDS: LIDOCAINE 1% (PF) 5 ML 2.1 ML INJ (12:23)
[2025-02-19 13:28] LABS: Urine N gonorrhoeae NOT DETECTED
[2025-02-19 13:29] LABS: Urine Chlamydia NOT DETECTED
== END 2025-02-19 12:32 | disposition home or self-care (01) ==
PROVIDERS: Emergency Provider Physician Assistant; PCP Registered Nurse Diabetes Educator
DX: Z20.2 Contact with and (suspected) exposure to infections with a predominantly sexual mode of transmission (principal); Z11.3 Encounter for screening for infections with a predominantly sexual mode of transmission
CPT/HCPCS: 87491; 87591; 96372; 99283; J0696

== ENCOUNTER 2025-05-12 22:32 | Emergency (ER) | payer OTHER, SELFPAY ==
[2025-05-12 22:39] VITALS: BP 147/86; PULSE 99; RESP 14; TEMP 36.5; O2SAT 96; BMI 40.1
[2025-05-13] VITALS (11 sets, daily range): BP systolic 125–149; BP diastolic 60–103; PULSE 94–104; RESP 24; O2SAT 94–98
--- NOTE | 2025-05-13 04:06 | ED.GIBLEED ---
HPI - GI Bleed <Tucker Bowser MD - Last Filed: 05/13/25 16:19> General Chief complaint: GI Bleed Stated complaint: anal fissure Time Seen by Provider: 05/13/25 03:33 Source: patient Mode of arrival: Ambulatory History of Present Illness HPI Narrative: 39-year-old female with history of hemorrhoids, 2 days duration rectal area discomfort, no injury recalled, went to walk-in clinic, had clinical external inspection exam, no RYAN, was told that she had anal fissure, trying topical zinc oxide, having continued pain. Feels like she is having flashes/chills, no measured fever however. Increasing perianal pain. No bloody stools. No instrumentation recalled. Related Data Previous Rx's ?Medication ?Instructions ?Recorded duloxetine 30 mg capsule,delayed 30 mg PO DAILY #90 caps 06/01/24 release norethindrone acetate 5 mg tablet 5 mg PO DAILY #90 tabs 01/20/25 lisinopril 20 mg tablet 20 mg PO DAILY #60 tabs 03/31/25 hydrocodone 5 mg-acetaminophen 325 1 tab PO Q6H PRN pain #10 tabs 05/13/25 mg tablet hydrocortisone acetate 25 mg 25 mg DE BEDTIME PRN hemorrhoids 05/13/25 rectal suppository (Anusol-HC) #12 ea Allergies Allergy/AdvReac Type Severity Reaction Status Date / Time No Known Drug Allergies Allergy Verified 05/12/25 22:39 Patient History <Tucker Bowser MD - Last Filed: 05/13/25 16:19> Medical History Obstructive sleep apnea hypopnea, severe Hyperinsulinemia Impaired fasting glucose Anxiety Pelvic somatic dysfunction Sacral region somatic dysfunction Lumbar region somatic dysfunction Acute right-sided low back pain with right-sided sciatica Dyslipidemia Snoring Hearing difficulty Obesity Endometriosis (2004) History of heavy periods (2004) Ovarian cyst (2004) Chicken pox Depression (2002) Surgical History H/O: hysterectomy Anesthesia History of third molar tooth extraction (2004) History of tonsillectomy (2004) Status post cholecystectomy (2008) Family History Father Age: 71 Cancer Hypertension Mental health disorder Mother Age: 69 Hypertension Fibromyalgia Grandfather Prostate cancer Grandmother No problems noted. Grandfather Dementia Grandmother No problems noted. Social History Smoking Status: Never smoker Smoking Status: Never smoker alcohol intake frequency: 0-2 drinks per day Exam <Tucker Bowser MD - Last Filed: 05/13/25 16:19> Narrative Exam Narrative: GENERAL: Well-developed patient, in mild distress. HEAD: Atraumatic. Normocephalic. EYES: Pupils equal round and reactive. Extraocular motions intact. No scleral icterus. No injection or drainage. ENT: No obvious craniofacial trauma. NECK: Trachea midline. Moves neck well. CARDIOVASCULAR: Regular rate and rhythm without murmurs, gallops, or rubs. RESPIRATORY: Clear to auscultation. Breath sounds equal bilaterally. No wheezes, rales, or rhonchi. GASTROINTESTINAL: Abdomen soft, non-tender, nondistended. : Perirectal skin tags without erythema, no obvious anal fissure, RYAN without obvious mass or significant discomfort. No stool on withdrawn gloved fingertip. EXTREMITIES: No edema or joint tenderness. BACK: Nontender without deformity or crepitance. No flank tenderness. NEURO: AOx3. Motor functions grossly nonfocal. SKIN: No rash or erythema of visible areas Initial Vital Signs Initial Vital Signs: Vital Signs Temperature 97.7 F 05/12/25 22:39 Pulse Rate 99 H 05/12/25 22:39 Respiratory Rate 14 05/12/25 22:39 Blood Pressure 147/86 H 05/12/25 22:39 Pulse Oximetry 96 05/12/25 22:39 Oxygen Delivery Method Room Air 05/12/25 22:39 <Maria Kelly DO - Last Filed: 05/13/25 12:15> Initial Vital Signs Initial Vital Signs: Vital Signs Temperature 97.7 F 05/12/25 22:39 Pulse Rate 99 H 05/12/25 22:39 Respiratory Rate 14 05/12/25 22:39 Blood Pressure 147/86 H 05/12/25 22:39 Pulse Oximetry 96 05/12/25 22:39 Oxygen Delivery Method Room Air 05/12/25 22:39 Course <Tucker Bowser MD - Last Filed: 05/13/25 16:19> Orders Ordered: Discontinued Medications Hydromorphone HCl (Hydromorphone Hcl 0.5 Mg/0.5 Ml Syringe) 0.5 mg IV NOW ONE Stop: 05/13/25 05:36 Last Admin: 05/13/25 06:24 Dose: 0.5 mg Documented By: ESTELLE Hydromorphone HCl (Hydromorphone Hcl 0.5 Mg/0.5 Ml Syringe) 0.5 mg IV NOW ONE Stop: 05/13/25 07:57 Last Admin: 05/13/25 08:34 Dose: 0.5 mg Documented By: EB Ketorolac Tromethamine (Ketorolac 30 Mg/Ml Vial) 15 mg IV NOW ONE Stop: 05/13/25 07:57 Last Admin: 05/13/25 08:33 Dose: 15 mg Documented By: JOHNNIE Ondansetron HCl (Ondansetron 4 Mg/2 Ml Inj) 4 mg IV NOW ONE Stop: 05/13/25 05:36 Last Admin: 05/13/25 06:24 Dose: 4 mg Documented By: ESTELLE Vital Signs Vital signs: Vital Signs - 8 hr 05/13/25 09:11 05/13/25 09:14 Pulse Rate 100 H 97 H Blood Pressure 130/60 Pulse Oximetry 97 98 Oxygen Delivery Method Room Air <Maria Kelly DO - Last Filed: 05/13/25 12:15> Orders Ordered: Discontinued Medications Hydromorphone HCl (Hydromorphone Hcl 0.5 Mg/0.5 Ml Syringe) 0.5 mg IV NOW ONE Stop: 05/13/25 05:36 Last Admin: 05/13/25 06:24 Dose: 0.5 mg Documented By: ESTELLE Hydromorphone HCl (Hydromorphone Hcl 0.5 Mg/0.5 Ml Syringe) 0.5 mg IV NOW ONE Stop: 05/13/25 07:57 Last Admin: 05/13/25 08:34 Dose: 0.5 mg Documented By: EB Ketorolac Tromethamine (Ketorolac 30 Mg/Ml Vial) 15 mg IV NOW ONE Stop: 05/13/25 07:57 Last Admin: 05/13/25 08:33 Dose: 15 mg Documented By: EB Ondansetron HCl (Ondansetron 4 Mg/2 Ml Inj) 4 mg IV NOW ONE Stop: 05/13/25 05:36 Last Admin: 05/13/25 06:24 Dose: 4 mg Documented By: ESTELLE Vital Signs Vital signs: Vital Signs - 8 hr 05/13/25 09:11 05/13/25 09:14 Pulse Rate 100 H 97 H Blood Pressure 130/60 Pulse Oximetry 97 98 Oxygen Delivery Method Room Air MDM - GI Bleed <Tucker Bowser MD - Last Filed: 05/13/25 16:19> Lab Data 05/13/25 06:08 05/13/25 06:08 Labs: Lab Results 05/13/25 Range/Units 06:08 WBC 9.2 (4.5-11.0) X10^3/uL RBC 4.53 (4.0-5.2) X10^6/uL Hgb 12.2 (12.0-16.0) g/dL Hct 36.7 (36-46) % MCV 81.0 (80-100) fL MCH 26.9 (26-34) PG MCHC 33.2 (30-36) % RDW 13.2 (11.6-14.8) % Plt Count 354 (150-400) X10^3/uL Neut % (Auto) 54.3 (50-75) % Lymph % (Auto) 34.1 (25-40) % [place] % (Auto) 7.6 (3-14) % Eos % (Auto) 3.7 (2-4) % Baso % (Auto) 0.3 (0-2) % Neut # (Auto) 5000 (3255-2799) /uL Lymph # (Auto) 3200 (8487-0360) /uL [place] # (Auto) 700 (0-900) /uL Eos # (Auto) 300 (0-450) /uL Baso # (Auto) 0 (0-100) /uL Sodium 136 L (137-145) mmol/L Potassium 4.0 (3.4-5.1) mmol/L Chloride 106 (98-107) mmol/L Carbon Dioxide 20 L (22-32) mmol/L BUN 20 H (7-17) mg/dL Creatinine 0.77 (0.52-1.04) mg/dL Estimated GFR > 60 (>60) mL/min BUN/Creatinine Ratio 26.0 H (6-22) Glucose 116 H (70-99) mg/dL Calcium 8.9 (8.4-10.2) mg/dL Total Bilirubin 0.2 (0.2-1.3) mg/dL AST 23 (14-36) IU/L ALT 25 (<35) IU/L Alkaline Phosphatase 71 (38-126) U/L Total Protein 7.3 (6.3-8.2) g/dL Albumin 4.2 (3.5-5.0) g/dL Globulin 3.1 (1.7-4.1) g/dL Albumin/Globulin Ratio 1.4 (1.0-2.8) Lipase 178 (23-300) U/L Urine Dip Bedside Urine Glucose Negative Bedside Urine Bilirubin - Negative Bedside Urine Ketone - Negative Urine Specific [place] 1.010 Bedside Urine Occult Blood - Negative Bedside Urine pH 5.5 Bedside Urine Protein - Negative Bedside Urine Urobilinogen - Negative Bedside Urine Nitrite - Negative Bedside Urine Leukocytes - Negative Esterase MDM Narrative Medical decision making narrative: 39-year-old female with perirectal perianal discomfort, clinical exam yesterday and walk-in clinic felt to have had anal fissure, using topical zinc. Worsening symptoms. Feels chills. No black or red stools subsequent. Afebrile, sirs screen negative. Labs pending. DDx consider perianal abscess, proctitis, thrombosed hemorrhoid not seen/palpated, neoplasia, other. External inspection without obvious anal fissure, RYAN without any significant mass or thrombosed hemorrhoid or mass. No stool or blood on withdrawn glove finger. Consider discharged home on stool softeners, could use empiric Proctofoam. Could do further workup with labs/imaging. Seemed indecisive, in room, they decided that they would like to talk about options together. We will return further decision. 0530, they would like further workup, sent labs, CT abdomen and pelvis imaging ordered. IV Dilaudid/Zofran. Keep NPO for now. 0700, CT abdomen and pelvis results pending, signed out to Dr. Kelly 0730 Dr. Kelly-seen evaluated patient myself. Blood work is overall reassuring without any clinical significant abnormalities. She has history hysterectomy endometriosis and cholecystectomy. CT shows no definite acute process mild hepatomegaly. Still waiting a urinalysis. Negative for UTI Recommend outpatient follow-up with outpatient colonoscopy <Maria Kelly DO - Last Filed: 05/13/25 12:15> Lab Data Labs: Lab Results 05/13/25 Range/Units 06:08 WBC 9.2 (4.5-11.0) X10^3/uL RBC 4.53 (4.0-5.2) X10^6/uL Hgb 12.2 (12.0-16.0) g/dL Hct 36.7 (36-46) % MCV 81.0 (80-100) fL MCH 26.9 (26-34) PG MCHC 33.2 (30-36) % RDW 13.2 (11.6-14.8) % Plt Count 354 (150-400) X10^3/uL Neut % (Auto) 54.3 (50-75) % Lymph % (Auto) 34.1 (25-40) % [place] % (Auto) 7.6 (3-14) % Eos % (Auto) 3.7 (2-4) % Baso % (Auto) 0.3 (0-2) % Neut # (Auto) 5000 (7388-7383) /uL Lymph # (Auto) 3200 (6301-0855) /uL [place] # (Auto) 700 (0-900) /uL Eos # (Auto) 300 (0-450) /uL Baso # (Auto) 0 (0-100) /uL Sodium 136 L (137-145) mmol/L Potassium 4.0 (3.4-5.1) mmol/L Chloride 106 (98-107) mmol/L Carbon Dioxide 20 L (22-32) mmol/L BUN 20 H (7-17) mg/dL Creatinine 0.77 (0.52-1.04) mg/dL Estimated GFR > 60 (>60) mL/min BUN/Creatinine Ratio 26.0 H (6-22) Glucose 116 H (70-99) mg/dL Calcium 8.9 (8.4-10.2) mg/dL Total Bilirubin 0.2 (0.2-1.3) mg/dL AST 23 (14-36) IU/L ALT 25 (<35) IU/L Alkaline Phosphatase 71 (38-126) U/L Total Protein 7.3 (6.3-8.2) g/dL Albumin 4.2 (3.5-5.0) g/dL Globulin 3.1 (1.7-4.1) g/dL Albumin/Globulin Ratio 1.4 (1.0-2.8) Lipase 178 (23-300) U/L Urine Dip Bedside Urine Glucose Negative Bedside Urine Bilirubin - Negative Bedside Urine Ketone - Negative Urine Specific [place] 1.010 Bedside Urine Occult Blood - Negative Bedside Urine pH 5.5 Bedside Urine Protein - Negative Bedside Urine Urobilinogen - Negative Bedside Urine Nitrite - Negative Bedside Urine Leukocytes - Negative Esterase MDM Narrative Medical decision making narrative: 39-year-old female with perirectal perianal discomfort, clinical exam yesterday and walk-in clinic felt to have had anal fissure, using topical zinc. Worsening symptoms. Feels chills. No black or red stools subsequent. Afebrile, sirs screen negative. Labs pending. DDx consider perianal abscess, proctitis, thrombosed hemorrhoid not seen/palpated, neoplasia, other. External inspection without obvious anal fissure, RYAN without any significant mass or thrombosed hemorrhoid or mass. No stool or blood on withdrawn glove finger. Consider discharged home on stool softeners, could use empiric Proctofoam. Could do further workup with labs/imaging. Seemed indecisive, in room, they decided that they would like to talk about options together. We will return further decision. 0530, they would like further workup for now, sent labs, CT abdomen and pelvis imaging ordered. IV Dilaudid/Zofran. Keep NPO for now. 0700, CT abdomen and pelvis results pending, signed out to Dr. Kelly 0730 Dr. Kelly-seen evaluated patient myself. Blood work is overall reassuring without any clinical significant abnormalities. She has history hysterectomy endometriosis and cholecystectomy. CT shows no definite acute process mild hepatomegaly. Still waiting a urinalysis. Negative for UTI Recommend outpatient follow-up with outpatient colonoscopy Discharge Plan Departure Patient Disposition: Home Clinical Impression: Rectal bleed Instructions: Gastrointestinal Bleeding Activity Restrictions/Additional Instructions: *You have been diagnosed with rectal bleeding *What to do: At this time blood work and CAT scanner overall reassuring. However it is still recommended that you have outpatient follow up with a colonoscopy. *Continue to take medications as directed Anusol suppository as directed [place] 1 tablet every 6 hours only if needed for severe pain *Follow up with your primary care provider in 2-3 days or call [phone] *Return to ER if you should have increasing pain persistent rectal bleeding [or] any new, worsening or concerning symptoms CONTROLLED SUBSTANCE DISCHARGE (Narcotoic/benzodiazepine/Flexeril/Phenergan) 1. You have been prescribed narcotic medications, it does have acetaminophen/Tylenol/paracetamol in it, DO NOT TAKE MORE THAN 4,00mg in 24 hours of Tylenol. TRAMADOL DOES NOT CONTAIN TYLENOL 2. Please understand that we cannot provide further refills of narcotics, benzodiazepines or controlled substances through the ED and her pain management will need to be through your provider. 3. While on these medications you cannot drive or operate heavy machinery. 4. You cannot sign legal documents or perform any duties such as this. 5. As long as you're taking opiate pain medications he should also be taking a stool softener such as Colace, Dulcolax, MiraLAX or prune juice, to help avoid constipation. Prescriptions: New hydrocortisone acetate [Anusol-HC] 25 mg suppository 25 mg DE BEDTIME PRN (Reason: hemorrhoids) Qty: 12 0RF hydrocodone-acetaminophen 5-325 mg tablet 1 tab PO Q6H PRN (Reason: pain) Qty: 10 0RF No Action norethindrone acetate 5 mg tablet 5 mg PO DAILY Qty: 90 3RF lisinopril 20 mg tablet 20 mg PO DAILY Qty: 60 0RF duloxetine 30 mg capsule,delayed release(DR/EC) 30 mg PO DAILY Qty: 90 3RF Referrals: Trae Castellanos ARNP [Primary Care Provider, Medical] Stand Alone Forms: Patient Portal/API
--- NOTE | 2025-05-13 05:34 | DI.CT.S_ITS ---
PROCEDURE: CT ABDOMEN PELVIS W CON INDICATIONS: perirectal pain, neg exam/RYAN TECHNIQUE: After the administration of intravenous contrast, axial sections acquired from the lung bases to the pubic symphysis. Coronal and sagittal reformats were performed. For radiation dose reduction, the following was used: automated exposure control, adjustment of mA and/or kV according to patient size. COMPARISON: [facility], CT, CT ABDOMEN PELVIS W CON, 04/19/2020, 12:25. FINDINGS: Image quality: Diagnostic. Lower Chest: No significant findings. ABDOMEN: Liver: No solid mass. Moderate hepatic steatosis. Hepatomegaly. Gallbladder: Gallbladder is surgically absent. Biliary ducts: No biliary dilation. Pancreas: No ductal dilation. Spleen: Size is within normal limits. Adrenal Glands: No adrenal nodules. Kidneys and Ureters: No hydronephrosis. No solid mass. No complex renal cystic lesion which requires follow up. Stomach and Bowel: Normal colonic caliber, without significant wall thickening. No abscess collection. Peritoneum: No abnormal intraperitoneal fluid. No free air. Ventral Wall: No significant ventral hernia. Abdominal Nodes: No retroperitoneal or mesenteric adenopathy by size criteria. Vessels: Aorta and inferior vena cava are normal in size. PELVIS: Pelvic Organs: Unremarkable. Bladder: No bladder wall thickening, accounting for underdistention. Pelvic Nodes: No enlarged lymph nodes. Miscellaneous: No inguinal hernias are seen. Bones: No aggressive osseous abnormality. IMPRESSION: 1. No bowel obstruction or abnormal bowel wall thickening. No free fluid or free air. 2. Hepatomegaly and moderate hepatic steatosis. No discrepancies. Dictated by: Bubba Joshi M.D. on 05/13/2025 at 7:57 Approved by: Bubba Joshi M.D. on 05/13/2025 at 8:00
[2025-05-13 06:18] LABS: Add Manual Diff / Slide Review NO; Hematocrit 36.7 % (36-46); Hemoglobin 12.2 g/dL (12.0-16.0); Lymphocytes Absolute Auto 3200 /uL (1100-4500); Mean Corpuscular HGB Conc 33.2 % (30-36); Mean Corpuscular Hemoglobin 26.9 PG (26-34); Mean Corpuscular Volume 81.0 fL (80-100); Platelet Count 354 X10^3/uL (150-400)
[2025-05-13] MEDS: ONDANSETRON 4 MG/2 ML INJ IV (06:24)
[2025-05-13 06:29] LABS: Alanine Aminotransferase 25 IU/L (<35); Albumin 4.2 g/dL (3.5-5.0); Albumin Globulin Ratio 1.4 (1.0-2.8); Alkaline Phosphatase 71 U/L (38-126); Blood Urea Nitrogen 20 mg/dL (7-17); Calcium 8.9 mg/dL (8.4-10.2); Carbon Dioxide 20 mmol/L (22-32); Chloride 106 mmol/L (98-107); Estimated Glomerular Filt Rate > 60 mL/min (>60); Globulin 3.1 g/dL (1.7-4.1); Glucose 116 mg/dL (70-99); HEMOLYSIS 18 (0-50); Lipase 178 U/L (23-300); Potassium 4.0 mmol/L (3.4-5.1); Sodium 136 mmol/L (137-145); Total Protein 7.3 g/dL (6.3-8.2)
[2025-05-13] MEDS: KETOROLAC 30 MG/ML VIAL 15 MG IV (08:33)
== END 2025-05-13 09:16 | disposition home or self-care (01) ==
PROVIDERS: Emergency Medicine; Emergency Provider Emergency Medicine; PCP Registered Nurse Diabetes Educator
DX: K62.5 Hemorrhage of anus and rectum (principal)
CPT/HCPCS: 36415; 74177; 80053; 81003; 83690; 85025; 96374; 96375; 96376; 99284; J1171; J1885; J2405; Q9967

== ENCOUNTER → 2025-05-26 11:13 | Outpatient (CLI) | payer OTHER, SELFPAY ==
[2025-05-26 11:45] LABS: Hematocrit 36.8 % (36-46); Hemoglobin 12.4 g/dL (12.0-16.0); Mean Corpuscular HGB Conc 33.7 % (30-36); Mean Corpuscular Hemoglobin 27.2 PG (26-34); Mean Corpuscular Volume 80.7 fL (80-100); Platelet Count 331 X10^3/uL (150-400)
[2025-05-26 11:53] LABS: Hemoglobin A1C% w Est Avg Glu 5.5 % (4.0-6.0)
[2025-05-26 12:36] LABS: Alanine Aminotransferase 23 IU/L (<35); Albumin 4.0 g/dL (3.5-5.0); Albumin Globulin Ratio 1.4 (1.0-2.8); Alkaline Phosphatase 70 U/L (38-126); Blood Urea Nitrogen 12 mg/dL (7-17); Calcium 8.8 mg/dL (8.4-10.2); Carbon Dioxide 21 mmol/L (22-32); Chloride 105 mmol/L (98-107); Cholesterol 198 mg/dL (140-199); Estimated Glomerular Filt Rate > 60 mL/min (>60); Globulin 2.8 g/dL (1.7-4.1); Glucose 108 mg/dL (70-99); HDL Cholesterol 53 mg/dL (40-60); HEMOLYSIS < 15 (0-50); Potassium 4.2 mmol/L (3.4-5.1); Sodium 135 mmol/L (137-145); Total Protein 6.8 g/dL (6.3-8.2); Triglycerides 322 mg/dL (35-150)
[2025-05-26 13:07] LABS: TSH w/ Reflex to FT4 0.89 uIU/mL (0.47-4.68)
== END ==
PROVIDERS: PCP Registered Nurse Diabetes Educator; Referring Provider Registered Nurse Diabetes Educator; Visit Provider Registered Nurse Diabetes Educator
DX: E16.1 Other hypoglycemia (principal); R73.01 Impaired fasting glucose; E78.5 Hyperlipidemia, unspecified; I10 Essential (primary) hypertension; G47.33 Obstructive sleep apnea (adult) (pediatric); J06.9 Acute upper respiratory infection, unspecified; H65.01 Acute serous otitis media, right ear
CPT/HCPCS: 36415; 80053; 80061; 83036; 83525; 84443; 85027